=== PATIENT | male | born 1955 | race African-American/Black ===

== ENCOUNTER 2017-03-14 09:36 | Emergency (ER) | payer MEDICAID ==
[~2017-03-14] VITALS: Ht 180.3 cm; Wt 72.6 kg
[2017-03-14] MEDS ORDERED: LIDOCAINE HCL 1% 20 ML VIAL IJ ONE (10:30)
--- NOTE | 2017-03-14 11:47 | NUR ---
Patient discharged to home in stable conditon. Written and verbal after care instructions given to patient. Patient verbalizes understanding of instructions.
== END 2017-03-14 11:49 | disposition home or self-care (01) ==
LOC: ER 09:36
DX: S01.112A Laceration without foreign body of left eyelid and periocular area, initial encounter (principal); S01.01XA Laceration without foreign body of scalp, initial encounter; S20.219A Contusion of unspecified front wall of thorax, initial encounter; W18.30XA Fall on same level, unspecified, initial encounter; Y93.89 Activity, other specified; Y92.9 Unspecified place or not applicable; Y99.9 Unspecified external cause status
CPT/HCPCS: 70450; 71010; A4217; A4663; J3490